=== PATIENT | male | born 1965 | race African-American/Black ===

== ENCOUNTER → 2016-10-14 | Outpatient (CLI) | payer BC, MEDICARE ==
[~2016-10-14] MED LIST: GADOBUTROL 7.5 MMOL/7.5 ML VIAL IV ONE; LEVE100S8 PO; LEVE250T30 PO; LEVE500T56 PO; OMEP20TA63 PO; ZOLP10TA PO
--- NOTE | 2016-10-14 16:31 | RAD ---
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 Additional axial FLAIR, and axial T2 weighted images were obtained. Sagittal and axial T1-weighted imaging was obtained prior to the administration of intravenous contrast material. Additional sagittal, axial, and coronal T1-weighted imaging was obtained after the administration of gadolinium based intravenous contrast material. FINDINGS: Again noted are postsurgical changes of a right frontal craniotomy and underlying mass resection. There is a prominent extradural space which is unchanged dating back to at least October 12, 2013. There is a thickened enhancing dura versus septation which is also unchanged. No new area of enhancement or soft tissue thickening to suggest recurrent tumor. The FLAIR signal hyperintensity in the bilateral frontal lobes is also unchanged dating back to 2013. Expected dilatation is noted of the right frontal horn which is an expected finding. The volume loss causes some shifting of the anterior falx toward the right which is stable. There is no mass effect. The basal cisterns are patent. Arterial flow voids at the level of the skull base are maintained. Globes and orbits are within normal limits. Midline structures demonstrate grossly normal anatomic configuration. IMPRESSION: Postop changes of right frontal lobe mass resection with no evidence for significant change when compared to recent prior exams. No evidence for recurrent tumor. Electronically signed by: Anjum Kramer MD (10/14/2016 4:28 PM)
== END | disposition home or self-care (01) ==
LOC: MRI 15:30
PROVIDERS: ATTEND Radiology Radiation Oncology
DX: C71.9 Malignant neoplasm of brain, unspecified (principal)
CPT/HCPCS: 70553; A9585

== ENCOUNTER → 2017-04-04 | Outpatient (CLI) | payer MEDICARE ==
[~2017-04-04] MED LIST changes: +LOVA20TA2 PO; +RANI150T6 PO
--- NOTE | 2017-04-04 14:24 | RAD ---
EXAM: Brain MRI with and without contrast. HISTORY: GBM excision. TECHNIQUE: Multiplanar, multisequence magnetic resonance imaging of the brain was performed prior to and following the administration of 6 cc Gadavist intravenous contrast. COMPARISON: 10/14/2016 FINDINGS: There are findings consistent with prior right frontal craniotomy and frontal lobe mass resection. There is stable encephalomalacia and gliosis surrounding the resection cavity. There is stable linear dural enhancement surrounding the resection cavity. No new nodular focus of enhancement is seen. There is a stable small peripherally enhancing right frontal extra-axial collection measuring 3 mm in thickness. There is ex vacuo dilatation of the frontal horn of the right lateral ventricle and slight anterior right rib midline shift due to volume loss. No new enhancing lesion is seen. There is no restricted diffusion to suggest acute or subacute infarction. There are few foci of susceptibility effect within the left cerebral hemisphere likely due to chronic microhemorrhage. There are confluent areas of T2/FLAIR hyperintensity within the cerebral white matter, likely due to chronic small vessel disease or brain radiation therapy. There is a chronic lacunar infarct within the right basal ganglia. There are normal flow voids within the cerebral vessels. The orbits, paranasal sinuses and mastoid air cells are unremarkable. IMPRESSION: 1. Findings consistent with right frontal craniotomy and frontal lobe mass resection. There is stable encephalomalacia and gliosis and peripheral enhancement along the resection cavity. No recurrent or residual neoplasm is seen. 2. Signal abnormality within the cerebral white matter, similar compared to the prior study and likely due to chronic small vessel disease or the sequela of brain radiation therapy. 3. Chronic infarct within the right basal ganglia. 4. Few scattered foci of chronic microhemorrhage within the cerebral hemispheres. Electronically signed by: Roxie Weaver MD (04/04/2017 2:20 PM) [id number]
== END | disposition home or self-care (01) ==
LOC: MRI 13:48
PROVIDERS: ATTEND Radiology Radiation Oncology
DX: C71.9 Malignant neoplasm of brain, unspecified (principal); G93.89 Other specified disorders of brain
CPT/HCPCS: 70553; A9585

== ENCOUNTER → 2018-06-02 | Outpatient (CLI) | payer BC ==
[~2018-06-02] MED LIST changes: +RANI150T21 PO; -RANI150T6 PO
--- NOTE | 2018-06-02 09:59 | RAD ---
MRI Brain with and without contrast History: Glioblastoma Technique: Multiplanar, multi sequential pre and postcontrast MR imaging was performed of the brain. Comparison: April 04, 2017; March 28, 2016 Findings: There again has been right frontal craniotomy, similar appearance of resection cavity of the right frontal lobe, stable amorphous enhancement at the posterior superior margin of resection cavity. There is no new nodular enhancement. There is again ex vacuo dilatation of the right frontal horn, size of ventricles similar. There is again T2 and FLAIR hyperintense signal abnormality about the resection cavity and also of the left frontal lobe also extending more posteriorly to the right valdivia radiata and centrum semiovale which was present previously. Findings are similar comparing with 2017 exam, mild progression of nonenhancing T2 and FLAIR hyperintense signal abnormality of the right valdivia radiata comparing with older exam such as in 2015 such as seen axial FLAIR image 17 on this exam compared with image 18 series 7 on March 2016 exam. There is no restricted diffusion suggestive of recent infarct. Small old lacunar infarct of the left thalamus is now apparent. There is no new significant midline shift. There is mild patchy thickening and fluid of the right mastoid air cells increased. Left mastoid air cells are mostly aerated, mild wall thickening. There is now small air-fluid level in the left maxillary sinus, mild left greater than right maxillary sinus mucosal thickening. There is also increased [id number] left and mild right ethmoid air cell mucosal thickening, also minimally of the right sphenoid sinus. Impression: 1. There is stable right frontal resection cavity not associated with new nodular enhancement, no new abnormal intracranial enhancement. There is again nonspecific T2 and FLAIR hyperintense signal abnormality about right frontal resection cavity and also the left frontal lobe and right valdivia radiata similar comparing with more recent exam, slight progression of the right valdivia radiata compared with older exam without associated enhancement. Findings are likely in part from post therapeutic change and gliosis, component of nonenhancing neoplasm not excluded. 2. There is paranasal sinus mucosal thickening as stated, also small air-fluid level of the left maxillary sinus which may be due to acute sinusitis. There is also mild patchy fluid and thickening of the right mastoid air cells. Electronically signed by: Wes Au MD (06/02/2018 9:54 AM) [id number]
== END | disposition home or self-care (01) ==
LOC: MRI 08:31
PROVIDERS: ATTEND Radiology Radiation Oncology
DX: C71.9 Malignant neoplasm of brain, unspecified (principal); Z92.3 Personal history of irradiation
CPT/HCPCS: 70553; A9585

== ENCOUNTER → 2019-08-11 | Outpatient (CLI) | payer BC ==
[~2019-08-11] MED LIST changes: -GADOBUTROL 7.5 MMOL/7.5 ML VIAL IV ONE; +GADOTERATE 7.5 MMOL/15ML VIAL. IVP ONE; +RANI-376 PO; -RANI150T21 PO
--- NOTE | 2019-08-11 16:35 | RAD ---
EXAM: MRI Brain with and without IV contrast INDICATION: History of glioblastoma . TECHNIQUE: Sagittal and axial T1-w and axial T2-w, FLAIR, GRE, coronal T2-w, and diffusion-w images of the brain with ADC maps without IV contrast. Thereafter, 14 mL dotarem IV administered for the postcontrast sequences involving axial, coronal and sagittal T1 weighted sequences. COMPARISON: MRI brain with and without IV contrast of 03/28/2016 and 06/02/2018. FINDINGS: BRAIN PARENCHYMA: Right superior frontal encephalomalacia consistent with previous craniotomy for tumor resection is again seen, with thin posterior superior amorphous enhancement along the resection cavity. There is no developing abnormal enhancement, nodularity or mass effect. Subcortical white matter T2 and FLAIR signal hyperintensity remains present, including along the posterior margin of resection. This demonstrates gradual interval progression in comparison with axial images 17 of series 7 on both the March 2016 exam and the May 2018 exam with the current, comparable level of images 17 and 18 on series 7 this exam. These likely represent sequela of chronic ischemic microvascular disease, and post treatment changes with gliosis but residual nonenhancing tumor is not excluded. No evidence of an acute infarct. No evidence of acute intracranial hemorrhage. No mass effect. Stable tiny left thalamic lacunar infarct and lucencies in the right basal ganglia compatible with lacunar infarcts or small Virchow-David spaces. VENTRICLES & EXTRA-AXIAL SPACES: Ex vacuo dilation of the right frontal horn is redemonstrated. Ventricles and basal cisterns otherwise are normal in size shape and position. No abnormal extra-axial fluid or mass. VESSELS: Normal signal voids in the larger intracranial vessels. ORBITS: Orbital contents are unremarkable. SINUSES: Paranasal sinuses are clear. Tympanic cavities and mastoid air cells are clear. OSSEOUS & SOFT TISSUES: Marrow signal is within normal limits. IMPRESSION: 1. Postoperative changes from right frontal craniotomy for tumor resection in the superior right frontal lobe with no new unexpected enhancement or developing nodularity. 2. Gradual progression in bilateral frontal lobe white matter T2 and FLAIR signal hyperintensity, favored to reflect the sequelae of previous treatment and chronic ischemic microvascular disease. Indolent tumor progression is less likely but not excluded. 3. No acute infarct, hemorrhage, or intracranial mass effect. Electronically signed by: Laisha Orozco MD (08/11/2019 4:32 PM) [id number]
== END | disposition home or self-care (01) ==
LOC: MRI 14:45
PROVIDERS: ATTEND Radiology Radiation Oncology
DX: G93.89 Other specified disorders of brain (principal); Z98.890 Other specified postprocedural states; Z85.841 Personal history of malignant neoplasm of brain
CPT/HCPCS: 70553; A9575

== ENCOUNTER → 2020-01-13 | Outpatient (CLI) | payer BC ==
--- NOTE | 2020-01-13 16:48 | [facility] ---
EXAM: Brain MRI with and without contrast. HISTORY: Glioblastoma. TECHNIQUE: Multiplanar, multisequence magnetic resonance imaging of the brain was performed prior to and following the administration of intravenous contrast. COMPARISON: 08/11/2019 FINDINGS: There is a tiny acute infarct within the anterior left thalamus. There are findings consistent with right frontal craniotomy and frontal lobe mass resection. There is a stable extra-axial fluid collection underlying the craniotomy bed measuring 4.0 cm in maximum dimension. There is stable minimal nonmasslike enhancement along the resection margins and stable surrounding T2/FLAIR hyperintensity due to edema or gliosis. There is ex vacuo dilatation of the anterior right lateral ventricle. There is slight anterior right midline shift due to right lobe volume loss. No new enhancing lesion is seen. There are scattered foci of susceptibility effect throughout the bilateral cerebral hemispheres and externally anterior distribution due to chronic microhemorrhage. There is nonspecific signal change within the cerebral white matter possibly due to interval radiation therapy or chronic small vessel disease. There are chronic lacunar infarcts within the bilateral basal ganglia and left thalamus. There is cerebral volume loss. The orbits, paranasal sinuses and mastoid air cells are unremarkable. There are normal flow voids within the cerebral vessels. IMPRESSION: 1. Tiny acute infarct within the anterior left thalamus. 2. Stable findings consistent with right frontal craniotomy and frontal lobe mass resection, with associated stable resection cavity, overlying extra-axial fluid collection, enhancement along the resection margin and surrounding edema or gliosis. There is no evidence to suggest progressive lucency. 3. Chronic lacunar infarcts within the bilateral basal ganglia and left thalamus. 4. Cerebral white matter changes likely due to chronic small vessel disease or rotation therapy. There are also extensive scattered foci of chronic microhemorrhage within the cerebral hemispheres which may be due to the sequela of prior brain radiation. Multiple attempts were made to contact the referring physician at 1600 hours on 01/13/2020. A voicemail was left regarding the findings. No exchange number or on-call physician is available. Electronically signed by: Roxie Weaver MD (01/13/2020 4:45 PM) [facility]
== END | disposition home or self-care (01) ==
LOC: KCIC MRI 15:14
PROVIDERS: ATTEND Radiology Radiation Oncology
DX: C71.1 Malignant neoplasm of frontal lobe (principal); I62.03 Nontraumatic chronic subdural hemorrhage; I63.81 Other cerebral infarction due to occlusion or stenosis of small artery
CPT/HCPCS: 70553; A9575